=== PATIENT | female | born 1995 | race African-American/Black ===

== ENCOUNTER → 2021-01-17 | Outpatient (CLI) | payer MEDICAID, SELFPAY ==
[2021-01-17 08:45] VITALS: BMI 25.9
[2021-01-17 12:37] LABS: Mucous, Urine 0 SEEN /hpf (<or=2+)
[2021-01-17 12:54] LABS: Color, Urine Yellow (Yellow); Glucose, Dipstick Normal (Normal); Ketone-Dipstick Negative (Negative); Leukocyte Esterase-Dipstick 500 /ul (Negative); Nitrite-Dipstick Negative (Negative); Occult Blood-Urine 10 /ul (Negative); Protein-Dipstick 15 mg/dl (Negative); Specific Gravity, Urine 1.025 (1.002-1.030); Urine Bilirubin Dipstick Negative (Negative); Urine Clarity Cloudy (Clear); Urine Urobilinogen 1 mg/dl (Normal)
[2021-01-17 13:30] LABS: Squamous Epithelial Cells - UA 25-50 SEEN /hpf (5-10); White Blood Cells 10-25 SEEN /hpf (0-5)
[2021-01-17 13:31] LABS: Bacteria 2+ /hpf (None Seen); Calcium Oxalate Crystals Ur 2+ /hpf (<or=2+)
[2021-01-17 13:32] LABS: Red Blood Cells-Urine 0-5 SEEN /hpf (0-5)
[2021-01-17 14:30] LABS: Chlamydia Trachomatis by PCR Negative (Negative); Neisserai gonorrhoeae by PCR Negative (Negative); Probe Check PASS; Sample Adequacy Control PASS; Specimen Processing Control PASS
== END | disposition home or self-care (01) ==
LOC: LABSPEC 12:18
PROVIDERS: Referring Provider Physician Assistant; Visit Provider Physician Assistant
DX: N94.9 Unspecified condition associated with female genital organs and menstrual cycle (principal)
CPT/HCPCS: 81001; 87086; 87088; 87491; 87591